=== PATIENT | male | born 1950 | race Caucasian/White ===

== ENCOUNTER 2018-12-05 13:14 | Outpatient (CLI) | payer MEDICARE, OTHER ==
[2018-12-05 13:42] LABS: APPEARANCE,URINE CLEAR (CLEAR); COLOR,URINE YELLOW (YELLOW); OCCULT BLOOD,URINE TRACE-INTACT (NEGATIVE); UROBILINOGEN URINE 0.2 Eu (0.2-1.0)
== END 2018-12-05 13:16 ==
LOC: LAB 13:14
PROVIDERS: ATTEND Family Medicine
DX: Z12.5 Encounter for screening for malignant neoplasm of prostate (principal); R10.2 Pelvic and perineal pain
CPT/HCPCS: 36415; 81002; 84153

== ENCOUNTER 2018-12-13 11:48 | Outpatient (CLI) | payer MEDICARE, OTHER ==
[2018-12-13 12:15] LABS: eGFR (Non-African) > 60
== END 2018-12-13 11:50 ==
LOC: LAB 11:48
PROVIDERS: ATTEND Family Medicine
DX: R10.84 Generalized abdominal pain (principal)
CPT/HCPCS: 36415; 80048